=== PATIENT | male | born 1985 | race Caucasian/White ===

== ENCOUNTER 2020-10-31 19:41 | Emergency (ER) | payer OTHER, MEDICAID, SELFPAY ==
[2020-10-31 19:47] VITALS: BP 171/103; PULSE 125; RESP 16; TEMP 36.8; O2SAT 99; BMI 31.4
[2020-10-31] MEDS: SODIUM CHLORIDE 0.9% 1,000 ML 1000 ML IV ×2 (20:00→21:39)
[2020-10-31 20:39] LABS: Add Manual Diff / Slide Review NO; Basophils Absolute Auto 100 /uL (0-100); Basophils Percent Auto 1.1 % (0-2); Eosinophils Absolute Auto 100 /uL (0-450); Eosinophils Percent Auto 1.8 % (2-4); Hematocrit 41.1 % (41-53); Hemoglobin 14.2 g/dL (13.5-17.5); Lymphocytes Absolute Auto 1700 /uL (1100-4500); Lymphocytes Percent Auto 21.1 % (25-40); Mean Corpuscular HGB Conc 34.5 % (30-36); Mean Corpuscular Hemoglobin 31.4 PG (26-34); Mean Corpuscular Volume 90.9 fL (80-100); Monocytes Absolute Auto 600 /uL (0-900); Monocytes Percent Auto 6.9 % (3-14); Neutrophils Absolute Auto 5700 /uL (1500-7000); Neutrophils Percent Auto 69.1 % (50-75); Platelet Count 204 X10^3/uL (150-400); Red Blood Cell Count 4.53 X10^6/uL (4.5-5.9); Red Cell Distribution Width 12.9 % (11.6-14.8); White Blood Cell Count 8.2 X10^3/uL (4.5-11.0)
[2020-10-31 20:43] LABS: Bacteria Urine None Seen; RBC Urine None Seen (0-5/HPF); WBC Urine None Seen (0-5/HPF)
[2020-10-31 20:48] LABS: Alanine Aminotransferase 38 IU/L (<50); Albumin 5.3 g/dL (3.5-5.0); Albumin Globulin Ratio 1.8 (1.0-2.8); Alkaline Phosphatase 35 U/L (38-126); Aspartate Aminotransferase 44 IU/L (17-59); BUN Creatinine Ratio 14.5 (6-22); Bilirubin Total 0.7 mg/dL (0.2-1.3); Blood Urea Nitrogen 12 mg/dL (9-20); Calcium 9.7 mg/dL (8.4-10.2); Carbon Dioxide 21 mmol/L (22-32); Chloride 92 mmol/L (98-107); Estimated Glomerular Filt Rate > 60.0 mL/min (>60); Glucose 202 mg/dL (70-100); HEMOLYSIS < 15 (0-50); Lipase 77 U/L (23-300); Potassium 3.2 mmol/L (3.4-5.1); Sodium 131 mmol/L (137-145); Total Protein 8.3 g/dL (6.3-8.2)
[2020-10-31 21:28] LABS: Culture Indicated Urine Cult Not Indicated; Squamous Epithelial Cell Urine 1-5 /HPF (0-5/HPF)
--- NOTE | 2020-10-31 21:32 | ED.GENADULT ---
HPI - General Adult General Chief complaint: Dizziness Stated complaint: fever, dizzy, exhausted, DMII Time Seen by Provider: 10/31/20 21:09 History of Present Illness HPI narrative: Patient here with . Complains of heat exhaustion. Patient states he has been out in the heat with the extreme heat warnings in the 100s in the past weekend. 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 He was in the heat all day. In addition he admits poor food choices and alcohol as well. Very little water intake. He was out on the boat today. Did not realize how hot he was getting. Denies denies any nausea or vomiting or altered mental status or hallucinations. His skin is slightly sunburned. He has not been taking his medications for diabetes as instructed. No chest pain no abdominal pain. No headache. No numbness tingling or weakness. No syncope. He feels much better after 1st L of normal saline. Related Data Previous Rx's Medication Instructions Recorded potassium chloride 20 mEq 20 meq PO BID #10 tab 10/31/20 tablet,extended release(part/cryst) Allergies Allergy/AdvReac Type Severity Reaction Status Date / Time acetaminophen [From Vicodin] Allergy Severe Hives Verified 10/31/20 19:56 hydrocodone [From Vicodin] Allergy Severe Hives Verified 10/31/20 19:56 Penicillins Allergy Severe Hives Verified 10/31/20 19:56 Review of Systems Review of Systems Narrative: GENERAL: Denies chills, complains fatigue, malaise, denies fever, sweats. HEENT: Denies sinus pain, ear pain, sore throat RESPIRATORY: Denies dyspnea, cough CARDIOVASCULAR: Denies chest pain, palpitations GASTROINTESTINAL: Denies nausea, vomiting, abdominal pain : Denies dysuria, frequency, hematuria MUSCULOSKELETAL: denies muscle or bony pain SKIN: Denies rash, skin lesions NEUROLOGIC: Denies weakness, numbness, complains of dizziness ROS Unobtainable: All systems reviewed & are unremarkable except as noted in HPI and below Patient History Social History Smoking Status: Current every day smoker Smoking Status: Current every day smoker alcohol intake frequency: 3 or more drinks per day Substance Use Type: marijuana Exam Narrative Exam Narrative: GENERAL: in no distress, not toxic not dyspneic HEAD: Normocephalic. EYES: Pupils equal round No scleral icterus. No injection no discharge ENT: Mucous membranes moist. NECK: Trachea midline. CARDIOVASCULAR: Regular rate and rhythm without murmurs RESPIRATORY: Clear to auscultation. Breath sounds equal bilaterally. No wheezes, rales, or rhonchi. GASTROINTESTINAL: Abdomen soft, non-tender EXTREMITIES: No gross deformities. BACK: No flank tenderness. NEURO: AOx4. SKIN: Warm and dry, slightly sunburned on the face and forearms. PSYCH: Not anxious, is cooperative Initial Vital Signs Initial Vital Signs: Vital Signs Temperature 98.2 F 10/31/20 19:47 Pulse Rate 125 H 10/31/20 19:47 Respiratory Rate 16 10/31/20 19:47 Blood Pressure 171/103 H 10/31/20 19:47 Pulse Oximetry 99 10/31/20 19:47 Course Course Course Narrative: No new issues during course of stay. He is feels much better after IV fluids and drinking water here. Feeling hungry now. No dizziness Orders Ordered: ED Orders 10/31/20 20:11 EKG-12 Lead Stat 10/31/20 20:22 Complete Blood Count AUTO DIFF Stat Comprehensive Metabolic Panel Stat Ethanol (ETOH) Stat Lipase Stat 10/31/20 20:41 Urine Microscopic Stat Discontinued Medications Sodium Chloride (Normal Saline 0.9%) 1,000 mls @ 1,000 mls/hr IV BOLUS ONE Stop: 10/31/20 20:49 Last Infusion: 10/31/20 21:26 Dose: 0 mls/hr Documented by: Admin: 10/31/20 20:00 Dose: 1,000 mls/hr Documented by: LAKISHA Sodium Chloride (Normal Saline 0.9%) 1,000 mls @ 1,000 mls/hr IV BOLUS ONE Stop: 10/31/20 22:30 Last Infusion: 10/31/20 22:35 Dose: 0 mls/hr Documented by: Infusion: 10/31/20 21:42 Dose: 1,000 mls/hr Documented by: Admin: 10/31/20 21:39 Dose: 1,000 mls/hr Documented by: EDGARDO Potassium Chloride (Potassium Chloride 20 Meq Tab) 40 meq PO NOW ONE Stop: 10/31/20 21:36 Last Admin: 10/31/20 21:39 Dose: 40 meq Documented by: EDGARDO Reevaluation(s) Reevaluation #1: Feels much better. Desires discharge home. IV fluids given. Drinking water as well. Feels hungry. Patient and desire discharge home. Reviewed results with patient. He agrees for resuming his proper diabetic diet and taking his medications and no alcohol. Time: 22:27 Vital Signs Vital signs: Vital Signs - 8 hr 10/31/20 19:47 10/31/20 22:41 Temperature 98.2 F Pulse Rate 125 H 66 Respiratory Rate 16 18 Blood Pressure 171/103 H 146/87 H Pulse Oximetry 99 100 Medical Decision Making Lab Data Result diagrams: 10/31/20 20:22 10/31/20 20:22 Labs: Lab Results 10/31/20 10/31/20 10/31/20 Range/Units 20:22 20:22 20:22 WBC 8.2 (4.5-11.0) X10^3/uL RBC 4.53 (4.5-5.9) X10^6/uL Hgb 14.2 (13.5-17.5) g/dL Hct 41.1 (41-53) % MCV 90.9 (80-100) fL MCH 31.4 (26-34) PG MCHC 34.5 (30-36) % RDW 12.9 (11.6-14.8) % Plt Count 204 (150-400) X10^3/uL Neut % (Auto) 69.1 (50-75) % Lymph % (Auto) 21.1 L (25-40) % [place] % (Auto) 6.9 (3-14) % Eos % (Auto) 1.8 L (2-4) % Baso % (Auto) 1.1 (0-2) % Neut # (Auto) 5700 (5874-8488) /uL Lymph # (Auto) 1700 (0235-2826) /uL [place] # (Auto) 600 (0-900) /uL Eos # (Auto) 100 (0-450) /uL Baso # (Auto) 100 (0-100) /uL Sodium 131 L (137-145) mmol/L Potassium 3.2 L (3.4-5.1) mmol/L Chloride 92 L (98-107) mmol/L Carbon Dioxide 21 L (22-32) mmol/L BUN 12 (9-20) mg/dL Creatinine 0.83 (0.66-1.25) mg/dL Estimated GFR > 60.0 (>60) mL/min BUN/Creatinine Ratio 14.5 (6-22) Glucose 202 H (70-100) mg/dL Calcium 9.7 (8.4-10.2) mg/dL Total Bilirubin 0.7 (0.2-1.3) mg/dL AST 44 (17-59) IU/L ALT 38 (<50) IU/L Alkaline Phosphatase 35 L (38-126) U/L Total Protein 8.3 H (6.3-8.2) g/dL Albumin 5.3 H (3.5-5.0) g/dL Globulin 3.0 (1.7-4.1) g/dL Albumin/Globulin Ratio 1.8 (1.0-2.8) Lipase 77 (23-300) U/L Urine RBC (0-5/HPF) Urine WBC (0-5/HPF) Ur Squamous Epith Cells (0-5/HPF) Urine Bacteria (None) Ur Culture Indicated? Ethyl Alcohol 49 H ( - 10) mg/dL 10/31/20 Range/Units 20:41 WBC (4.5-11.0) X10^3/uL RBC (4.5-5.9) X10^6/uL Hgb (13.5-17.5) g/dL Hct (41-53) % MCV (80-100) fL MCH (26-34) PG MCHC (30-36) % RDW (11.6-14.8) % Plt Count (150-400) X10^3/uL Neut % (Auto) (50-75) % Lymph % (Auto) (25-40) % [place] % (Auto) (3-14) % Eos % (Auto) (2-4) % Baso % (Auto) (0-2) % Neut # (Auto) (3722-9936) /uL Lymph # (Auto) (5776-1042) /uL [place] # (Auto) (0-900) /uL Eos # (Auto) (0-450) /uL Baso # (Auto) (0-100) /uL Sodium (137-145) mmol/L Potassium (3.4-5.1) mmol/L Chloride (98-107) mmol/L Carbon Dioxide (22-32) mmol/L BUN (9-20) mg/dL Creatinine (0.66-1.25) mg/dL Estimated GFR (>60) mL/min BUN/Creatinine Ratio (6-22) Glucose (70-100) mg/dL Calcium (8.4-10.2) mg/dL Total Bilirubin (0.2-1.3) mg/dL AST (17-59) IU/L ALT (<50) IU/L Alkaline Phosphatase (38-126) U/L Total Protein (6.3-8.2) g/dL Albumin (3.5-5.0) g/dL Globulin (1.7-4.1) g/dL Albumin/Globulin Ratio (1.0-2.8) Lipase (23-300) U/L Urine RBC None seen (0-5/HPF) Urine WBC None seen (0-5/HPF) Ur Squamous Epith Cells 1-5 /hpf (0-5/HPF) Urine Bacteria None seen (None) Ur Culture Indicated? Cult not indicated Ethyl Alcohol ( - 10) mg/dL Urine Dip Bedside Urine Glucose 1000 mg/dl Bedside Urine Bilirubin - Negative Bedside Urine Ketone - Negative Urine Specific [place] 1.015 Bedside Urine Occult Blood - Negative Bedside Urine pH 6.0 Bedside Urine Protein - Negative Bedside Urine Urobilinogen - Negative Bedside Urine Nitrite - Negative Bedside Urine Leukocytes - Negative Esterase Point of care testing: Urine Dip Bedside Urine Glucose 1000 mg/dl Bedside Urine Bilirubin - Negative Bedside Urine Ketone - Negative Urine Specific [place] 1.015 Bedside Urine Occult Blood - Negative Bedside Urine pH 6.0 Bedside Urine Protein - Negative Bedside Urine Urobilinogen - Negative Bedside Urine Nitrite - Negative Bedside Urine Leukocytes - Negative Esterase MDM Narrative Medical decision making narrative: Appropriate for discharge home. Treatment for heat exhaustion. Feels much better after IV fluids and hydration. Exam and laboratory studies reassuring. Discharge Plan Departure Patient Disposition: Home Clinical Impression: Heat exhaustion Qualifiers: Encounter type: initial encounter Qualified Code(s): T67.5XXA - Heat exhaustion, unspecified, initial encounter Instructions: DI for Heat Exhaustion and Heat Stroke Activity Restrictions/Additional Instructions: Be careful heat exhaustion. Limit your time in the sun. Be sure to use sunscreen. Keep very well hydrated with water if ER in the son. No alcohol consumption. Resume your proper diabetic diet. Take your medications as prescribed. See family doctor in a week for recheck. Return if worse or if any questions or concerns Prescriptions: New potassium chloride 20 mEq tablet,ER particles/crystals 20 meq PO BID Qty: 10 RF: 0
[2020-10-31] MEDS: POTASSIUM CHLORIDE 20 MEQ TAB 40 MEQ PO (21:39)
[2020-10-31 21:44] LABS: Ethanol (ETOH) 49 mg/dL
[2020-10-31 22:41] VITALS: BP 146/87; PULSE 66; RESP 18; O2SAT 100
== END 2020-10-31 22:49 | disposition home or self-care (01) ==
PROVIDERS: Emergency Provider Emergency Medicine
DX: T67.5XXA Heat exhaustion, unspecified, initial encounter (principal)
CPT/HCPCS: 36415; 80053; 80320; 81003; 81015; 83690; 85025; 93005; 96360; 96361; 99284